=== PATIENT | female | born 1985 ===

== ENCOUNTER 2025-05-25 06:00 | Day surgery (SDC) | payer OTHER ==
[2025-05-24 11:44] VITALS: BP 118/75
[~2025-05-25] VITALS: Ht 162.6 cm; Wt 58.1 kg
[~2025-05-25 06:00] MED LIST: DOXYCYCLINE HY100 MG PO; SYNTHROID125 MCG PO; TYLENOL-CODEINE1 TAB PO; ZOLOFT50 MG PO
[2025-05-25] MEDS ORDERED: CEFAZOLIN SODIUM 1,000 MG VIAL ONE (09:24)
[2025-05-25] MEDS ORDERED: CHLORHEXIDINE GLUCONATE 120 ML BOTTLE TOP ONE ×2 (11:35→12:13)
== END 2025-05-25 16:35 | disposition home or self-care (01) ==
LOC: CIR.AMB 06:00
PROVIDERS: ATTEND Surgery
DX: D48.61 Neoplasm of uncertain behavior of right breast (principal); N60.81 Other benign mammary dysplasias of right breast; N62 Hypertrophy of breast